=== PATIENT | female | born 1955 | race Caucasian/White ===

== ENCOUNTER 2017-02-13 03:26 | Emergency (ER) | payer OTHER ==
[~2017-02-13] VITALS: Ht 170.2 cm; Wt 100.0 kg
[2017-02-13 03:35] VITALS: BP 130/82; PULSE 68; RESP 16; O2SAT 95
--- NOTE | 2017-02-13 04:01 | ED.REPORT ---
HPI-Abd Pain F 40 and Over Date of Service February 13, 2017 ED Provider: Neeraj Jerez MD A 61 year old female with no known medical history presents to the ED complaining of rectal bleeding. The pt began experiencing severe, sharp abdominal pain at 19:00 last night and had loose stools at that point. By 23:00 she was experiencing diarrhea with continuing abdominal pain. She woke at 00:00 and had an episode of diarrhea with minimal amounts of blood, then noticed more bright red blood at 02:00. The pt denies nausea or vomiting. Nursing Notes Stated Complaint: DIARRHEA,ABDOMINAL PAIN Chief Complaint: Female Abdominal Pain Nursing Notes Reviewed: Yes Allergies: Coded Allergies: No Known Allergies (Unverified , 02/13/17) General Time Seen by MD: 03:59 Chief Complaint Rectal bleeding Hx Obtained From: Patient Arrived By: Walk-in Sudden in Onset?: Yes Recent Healthcare: No recent doctor visit, No recent hospitalization Similar Sx Previous: No Past Medical History Past Medical History none reported Past Surgical History none reported Smoking History Unknown if Ever Smoker Social History Other Social History: Good social support Ambulatory Status Independent Review of Systems rectal bleeding Respiratory: Denies: Non-productive cough Cardiovascular: Denies: Chest pain GI: Reports: Abdominal pain, Diarrhea, Denies: Nausea, Vomiting Musculoskeletal: Denies: Neck pain Complete sys rev & neg: except as marked. Physical Exam Vital Signs Vital Signs (First) Date Time Temp Pulse Resp B/P Pulse Ox O2 Delivery O2 Flow Rate FiO2 02/13/17 03:35 36.4 68 16 130/82 95 Room Air Initial VS: Reviewed General/Constitutional: Awake, Alert, Well hydrated Respiratory / Chest: Atraumatic, Breath sounds NL, Breath sounds = bilat, No respiratory distress Cardiovascular: Heart rate NL, Regular rhythm, Heart sounds NL Abdomen: Atraumatic, Soft diffuse nonlocalized abdominal pain Back: Atraumatic, Full range of motion, No CVA tenderness Head / Eyes: Atraumatic, Normocephalic, PERRL, EOMI ENT: Atraumatic, Airway patent, Mucous membranes moist Skin: Atraumatic, Color NL, No rash, Warm, Dry Neurologic: Oriented X3, Speech NL, No motor deficits, No sensory deficits Neck: Atraumatic, Supple, Full range of motion Upper Extremity / MS: Atraumatic, Full range of motion Lower Extremity / Pelvis / MS: Atraumatic, Full range of motion Psychiatric: Affect NL, Mood NL Interpretation & Diagnostics Lab Results Interpretation Result Diagram: 02/13/17 0425 02/13/17 0425 Test 02/13/17 04:25 02/13/17 05:00 White Blood Count 10.6th/mm3 (3.8-10.1) Red Blood Count 4.77mil/mm3 (3.90-5.20) Hemoglobin 14.6g/dL (12.0-15.6) Hematocrit 42.1% (35.0-46.0) Mean Corpuscular Volume 88.3fL (81-100) Mean Corpuscular Hemoglobin 30.6pg (27.0-35.0) Mean Corpuscular Hemoglobin Concent 34.7% (32.0-37.0) Red Cell Distribution Width 13.0% (12.3-15.4) Platelet Count 362bil/L (150-400) Neutrophils (%) (Auto) 79.8% (40-74) Lymphocytes (%) (Auto) 11.4% (14-46) Monocytes (%) (Auto) 6.3% (4-12) Eosinophils (%) (Auto) 1.8% (0-5) Basophils (%) (Auto) 0.5% (0-3) Prothrombin Time 10.0sec (8.1-12.5) Prothromb Time International Ratio 0.94ratio Sodium Level 138mEq/L (134-144) Potassium Level 4.1mEq/L (3.5-5.2) Chloride Level 100mEq/L (97-108) Carbon Dioxide Level 22mmol/L (18-29) Blood Urea Nitrogen 24mg/dL (6-24) Creatinine 0.65mg/dL (0.57-1.00) Estimat Glomerular Filtration Rate 134mL/min (>59) Glucose Level 121mg/dL (60-99) Calcium Level 9.3mg/dL (8.5-10.1) Magnesium Level 2.0mg/dL (1.6-2.6) Total Bilirubin 0.3mg/dL (0.0-1.2) Aspartate Amino Transf (AST/SGOT) 17U/L (0-50) Alanine Aminotransferase (ALT/SGPT) 19U/L (0-32) Alkaline Phosphatase 83U/L (25-165) Total Protein 7.5g/dL (6.4-8.4) Albumin 4.4g/dL (3.4-5.0) Lipase 21U/L (13-60) Hold Eddy Top Tube Received (Received) Hold Urine Received (Received) Re-Eval/Medical Decision Med Decision/Clinical Course 61-year-old female with bloody diarrhea through the night. Currently awaiting stool antigen testing and repeat H&H. Her care is being turned over change Dr. Tommy Bradley.. Counseled Regarding: Diagnosis, Lab results, Need for follow-up, When/why to return to ED Discharge & Departure Primary Impression: Bloody diarrhea Disposition: Home Discharge Condition All VS Reviewed: Yes Condition: Stable Referrals: [facility] Scribe Attestation Portions of this note were transcribed by Kelsi Babccok. I, Dr. Jerez personally performed the history, physical exam and medical decision-making; I reviewed and confirmed the accuracy of the information in the transcribed note. Signed by: Luz Marina Uriostegui, 02/13/17 and 0406. copies to: [facility] Neeraj Jerez MD February 13, 2017 04:01 KELSI BABCOCK February 13, 2017 04:10
[2017-02-13] MEDS ORDERED: 0.9% Sodium Chloride 1,000 ML IV ONE (04:07)
[2017-02-13] MEDS ORDERED: Pantoprazole 4 mg/mL 10 mL Inj IVPUSH ONE (04:10)
[2017-02-13] MEDS ORDERED: Ondansetron 2 mg/mL 2 mL Inj IVPUSH PRN (04:10)
[2017-02-13 04:36] LABS: BASOPHILS % (AUTO) 0.5 % (0-3); EOSINOPHILS % (AUTO) 1.8 % (0-5); MONOCYTES % (AUTO) 6.3 % (4-12); Mean Corpuscular Hemoglobin 30.6 pg (27.0-35.0); Mean Corpuscular Volume 88.3 fL (81-100); NEUTROPHILS % (AUTO) 79.8 % (40-74); Platelet Count 362 bil/L (150-400)
[2017-02-13 04:57] LABS: INR 0.94 ratio
[2017-02-13 06:11] VITALS: BP 128/80; PULSE 65; RESP 17; O2SAT 97
[2017-02-13] MEDS ORDERED: HYDR25TA4 PO (08:49)
[2017-02-13] MEDS ORDERED: AMLO10TA3 PO (08:49)
[2017-02-13] MEDS ORDERED: LISI-567 PO (08:50)
[2017-02-13 08:51] VITALS: BP 112/68; PULSE 62; RESP 20; O2SAT 94
--- NOTE | 2017-02-13 09:42 | DRSVH ---
PROCEDURE: CT ABDOMEN AND PELVIS WITH CONTRAST ([id number]) INDICATIONS: ABd pain TECHNIQUE: After the administration of intravenous contrast, 5 mm thick sections acquired from the diaphragm to the symphysis. 5 mm coronal and sagittal reformats were acquired. For radiation dose reduction, the following was used: automated exposure control, adjustment of mA and/or kV according to patient siz e. COMPARISON: None. FINDINGS: Image quality: Excellent. ABDOMEN: Lung bases: Lung bases are clear. Heart size is normal. Solid organs: Presumed hepatic cysts seen in the left lobe liver measuring approximately 2.3 cm other cowan the liver and spleen are normal in size and enhancement. Gallbladder partially decompressed oth erwise unremarkable. Biliary system is non dilated. Pancreas enhances normally. No adrenal nodules . Kidneys demonstrate normal size and enhancement, without hydronephrosis. Peritoneum and bowel: No free fluid or free air. No bowel obstruction seen. There is long segment cir cumferential bowel wall thickening involving the descending colon in keeping with colitis. There is m inimal adjacent fat stranding. Normal appendix. Nodes and vessels: No retroperitoneal or mesenteric adenopathy by size criteria. Aorta and inferior vena cava are normal in size. Miscellaneous: No ventral hernias. PELVIS: Genitourinary: Bladder wall thickness is normal. Miscellaneous: No inguinal hernias or adenopathy. Bones: No suspicious bony lesions. No vertebral body compression fractures. IMPRESSION: Mild descending colitis, statistically infectious/inflammatory. Please correlate clinically and with laboratory data. Normal appendix. Dictated by: Winston Cleaning M.D. on 02/13/2017 at 9:35 Approved by: Winston Cleaning M.D. on 02/13/2017 at 9:40
[2017-02-13 12:39] VITALS: BP 107/59; PULSE 69; RESP 20; O2SAT 97
[2017-02-13] MEDS ORDERED: HYDR-4003 PO (13:56)
[2017-02-13 14:07] VITALS: BP 116/77; PULSE 72; RESP 16; O2SAT 97
== END 2017-02-13 14:08 | disposition home or self-care (01) ==
LOC: SED 03:26
DX: R19.7 Diarrhea, unspecified (principal); K52.9 Noninfective gastroenteritis and colitis, unspecified
CPT/HCPCS: 36415; 74177; 80053; 83690; 83735; 85025; 85610; 96374; 96375; 99285; J2405; J7030; Q9967